=== PATIENT | female | born 1980 | race Caucasian/White ===

== ENCOUNTER 2024-08-15 05:56 | Emergency (ER) | payer OTHER ==
[2024-08-15] MEDS: Ketorolac 60 MG/2 ML SDV IM ONE (06:28)
[2024-08-15 06:38] LABS: APPEARANCE,URINE SLT CLOUDY (Clear); BILIRUBIN,URINE NEGATIVE (Negative); COLOR,URINE YELLOW (Yellow); GLUCOSE,URINE NEGATIVE (Negative); KETONES,URINE NEGATIVE (Negative); LEUKOCYTE ESTERASE,URINE NEGATIVE (Negative); NITRITE,URINE NEGATIVE (Negative); OCCULT BLOOD,URINE NEGATIVE (Negative); PROTEIN,URINE TRACE (Negative); UROBILINOGEN,URINE 0.2 (0.2-1.0)
[2024-08-15] MEDS: Diazepam 5 MG Tab PO ONE (07:13)
[2024-08-15 07:18] LABS: BACTERIA,URINE MANY /hpf (FEW); MUCUS,URINE MODERATE /hpf (FEW); RBC,URINE 0-5 /hpf (0-5); SQUAMOUS EPITHELIAL CELLS,UR 0-5 /hpf (0-5); WBC,URINE 0-5 /hpf (0-5)
== END 2024-08-15 07:40 | disposition home or self-care (01) ==
LOC: JD.ED 05:56
DX: M54.16 Radiculopathy, lumbar region (principal); Z88.0 Allergy status to penicillin; Z88.1 Allergy status to other antibiotic agents; Z79.899 Other long term (current) drug therapy
CPT/HCPCS: 81001; 96372; 99283; A9270; J1885

== ENCOUNTER 2024-08-15 22:42 | Emergency (ER) | payer OTHER ==
[2024-08-16] MEDS ORDERED: Sodium Chloride 0.9% 10 ML Syringe FLUSH PRN (00:43)
[2024-08-16] MEDS: droPERidol 2.5 MG/ML SDV IVPUSH ONE (00:52)
[2024-08-16] MEDS: Ketorolac 30 MG/ML SDV IVPUSH ONE (00:54)
[2024-08-16] MEDS: diphenhydrAMINE 50 MG/ML SDV IVPUSH ONE (00:56)
[2024-08-16] MEDS ORDERED: droPERidol 2.5 MG/ML SDV IVPUSH ONE (01:39)
== END 2024-08-16 02:20 | disposition home or self-care (01) ==
LOC: JD.ED 22:42
DX: M54.42 Lumbago with sciatica, left side (principal); Z88.1 Allergy status to other antibiotic agents; Z88.0 Allergy status to penicillin; Z79.899 Other long term (current) drug therapy
CPT/HCPCS: 96374; 96375; 99283; J1200; J1790; J1885; 99284